=== PATIENT | female | born 1975 | race Caucasian/White ===

== ENCOUNTER 2020-02-02 09:42 | Outpatient (CLI) | payer OTHER, SELFPAY ==
--- NOTE | 2020-02-02 09:53 | US_ITS ---
WS: [id number] Complete ABDOMINAL ULTRASOUND HISTORY: PRIMARY BILIARY CHOLANGITIS COMPARISON: None available. Liver: 15.1 cm in length. Liver is normal size and echogenicity with no mass or intrahepatic dilatati on. Gallbladder: Mildly contracted gallbladder with diffuse mild wall thickening. No pericholecystic flui d. Gallbladder wall thickness: 0.3 cm. Pancreas: Normal size and echogenicity. CBD: 0.4 cm. Right kidney: 10.9 cm x 5.1 cm x 4.9 cm. No mass, cortical thickening or hydronephrosis. Left kidney: 10.3 cm x 5.7 cm x 5.3 cm. No mass, cortical thickening or hydronephrosis. Spleen: Spleen is moderately enlarged extending over length of 14.6 cm. No mass. Abdominal aorta and IVC are within normal limits. No ascites. US/US abdomen complete* [id number] IMPRESSION: 1. Moderate splenomegaly. 2. Mildly contracted gallbladder due to nonfasting state.
== END 2020-02-02 09:43 | disposition home or self-care (01) ==
PROVIDERS: PCP Nurse Practitioner Family; Visit Provider Internal Medicine Gastroenterology
DX: K74.3 Primary biliary cirrhosis (principal); R16.1 Splenomegaly, not elsewhere classified; N32.89 Other specified disorders of bladder
CPT/HCPCS: 76700

== ENCOUNTER → 2023-09-28 17:48 | Outpatient (BNVA) | payer BC, SELFPAY | PROVIDERS: PCP Nurse Practitioner Family; Visit Provider Nurse Practitioner | DX: L98.9 Disorder of the skin and subcutaneous tissue, unspecified (principal) | CPT/HCPCS: 88305 ==